=== PATIENT | female | born 1960 | race Two or more races ===

== ENCOUNTER 2017-09-26 13:59 | Outpatient (RCR) | payer OTHER | END 2017-09-28 | LOC: OT 13:59 | PROVIDERS: ATTEND Orthopaedic Surgery | DX: S52.592A Other fractures of lower end of left radius, initial encounter for closed fracture (principal) | CPT/HCPCS: 97010; 97110 ×2; 97140; 97165; L3906 ==

== ENCOUNTER 2017-10-20 10:57 | Outpatient (RCR) | payer OTHER | END 2017-10-29 | LOC: OT 10:57 | PROVIDERS: ATTEND Orthopaedic Surgery | DX: S52.592A Other fractures of lower end of left radius, initial encounter for closed fracture (principal) | CPT/HCPCS: 97139 ==

== ENCOUNTER 2017-11-08 07:29 | Outpatient (RCR) | payer OTHER | END 2017-11-28 | LOC: OT 07:29 | PROVIDERS: ATTEND Orthopaedic Surgery | DX: S52.592A Other fractures of lower end of left radius, initial encounter for closed fracture (principal) | CPT/HCPCS: 97139 ==